=== PATIENT | male | born 1945 | race Caucasian/White ===

== ENCOUNTER 2018-04-03 12:01 | Outpatient (REF) | payer MEDICARE, SELFPAY ==
[2018-04-03 23:14] LABS: Potassium 4.4 mmol/L (3.5-5.1)
== END 2018-04-03 12:21 ==
LOC: NCHCN 12:01
PROVIDERS: PCP Internal Medicine; Visit Provider Internal Medicine
DX: E87.5 Hyperkalemia (principal)
CPT/HCPCS: 84132

== ENCOUNTER 2018-12-25 10:32 | Outpatient (REF) | payer MEDICARE, SELFPAY ==
[2018-12-25 21:18] LABS: Anion Gap 9.7 mmol/L (3-11); BUN 24 mg/dL (7-18); CO2 25.3 mmol/L (21.0-32.0); CREATININE 1.22 mg/dL (0.70-1.30); Calculated LDL 85; Chloride 108 mmol/L (98-107); Cholesterol 150 mg/dL (50-200); Estimated GFR 58.07 (mL/min/1.73m2); Glucose 102 mg/dL (70-100); HDL Cholesterol 39 mg/dL (40-60); Potassium 4.6 mmol/L (3.5-5.1); Sodium 143 mmol/L (136-145); Triglyceride 133 mg/dL (30-150)
[2018-12-25 21:23] LABS: Calcium 8.8 mg/dL (8.5-10.1)
== END 2018-12-25 10:52 ==
LOC: NCHCN 10:32
PROVIDERS: PCP Internal Medicine; Visit Provider Internal Medicine
DX: E78.5 Hyperlipidemia, unspecified (principal); I25.10 Atherosclerotic heart disease of native coronary artery without angina pectoris
CPT/HCPCS: 80048; 80061; 83721

== ENCOUNTER 2019-08-29 12:57 | Outpatient (REF) | payer MEDICARE, SELFPAY ==
[2019-08-29 21:44] LABS: Anion Gap 8.5 mmol/L (3-11); BUN 27 mg/dL (7-18); CO2 28.5 mmol/L (21.0-32.0); Calcium 9.3 mg/dL (8.5-10.1); Chloride 107 mmol/L (98-107); Estimated GFR 53.96 (mL/min/1.73m2); Glucose 80 mg/dL (74-106); Potassium 5.3 mmol/L (3.5-5.1); Sodium 144 mmol/L (136-145)
== END 2019-08-29 13:17 ==
LOC: NCHCN 12:57
PROVIDERS: PCP Nurse Practitioner Community Health; Visit Provider Nurse Practitioner Community Health
DX: I10 Essential (primary) hypertension (principal)
CPT/HCPCS: 80048

== ENCOUNTER 2019-09-12 10:13 | Outpatient (REF) | payer MEDICARE, SELFPAY ==
[2019-09-12 22:49] LABS: Potassium 4.9 mmol/L (3.5-5.1)
== END 2019-09-12 10:33 ==
LOC: NCHCN 10:13
PROVIDERS: PCP Nurse Practitioner Community Health; Visit Provider Nurse Practitioner Community Health
DX: E87.5 Hyperkalemia (principal)
CPT/HCPCS: 84132

== ENCOUNTER 2021-02-06 17:11 | Outpatient (REF) | payer MEDICARE, SELFPAY ==
[2021-02-06 20:38] LABS: HCT 37.3 % (40.0-50.0); HGB 12.2 g/dL (13.5-17.5); MCHC 32.7 % (32.0-36.0); MCV 91.6 fL (80-95); MPV 10.5 fL (8.0-11.0); Platelet Count 245 10^3/uL (130-400); RBC 4.07 10^6/uL (4.36-5.78); RDW-SD 46.9 fL
[2021-02-06 20:54] LABS: ESR 12 mm/hr (0-20)
[2021-02-06 20:55] LABS: C-Reactive Protein 0.07 mg/dL (0.0-0.3)
== END 2021-02-06 17:12 | disposition home or self-care (01) ==
LOC: NCHCN 17:11
PROVIDERS: PCP Nurse Practitioner Community Health; Visit Provider Nurse Practitioner Family
DX: H53.9 Unspecified visual disturbance (principal)
CPT/HCPCS: 85027; 85652; 86140

== ENCOUNTER 2021-07-02 08:49 | Outpatient (REF) | payer MEDICARE, SELFPAY ==
[2021-07-02 14:51] LABS: ALT 44 U/L (16-63); AST 35 U/L (15-37); Albumin 4.1 g/dL (3.4-5.0); Alkaline Phosphatase 82 U/L (46-116); Anion Gap 11.1 mmol/L (3-11); BUN 36 mg/dL (7-18); Bilirubin, Total 0.3 mg/dL (0.2-1.0); CO2 24.9 mmol/L (21.0-32.0); CREATININE 1.5 mg/dL (0.70-1.30); Calcium 9.2 mg/dL (8.5-10.1); Calculated LDL 96 mg/dL (<100); Chloride 104 mmol/L (98-107); Cholesterol 161 mg/dL (<200); Glucose 106 mg/dL (74-106); HDL Cholesterol 46 mg/dL (40-60); Potassium 4.6 mmol/L (3.5-5.1); Sodium 140 mmol/L (136-145); Total Protein 7.2 g/dL (6.4-8.2); Triglyceride 95 mg/dL (<150)
== END 2021-07-02 08:50 | disposition home or self-care (01) ==
LOC: NCHCN 08:49
PROVIDERS: PCP Nurse Practitioner Community Health; Visit Provider Internal Medicine
DX: I10 Essential (primary) hypertension (principal); E87.5 Hyperkalemia; E78.5 Hyperlipidemia, unspecified
CPT/HCPCS: 80053; 80061

== ENCOUNTER 2022-03-24 22:20 | Outpatient (REF) | payer MEDICARE, SELFPAY ==
[2022-03-24 22:22] LABS: HCT 36.7 % (40.0-50.0); HGB 12.8 g/dL (13.5-17.5); MCH 30.8 pg (27.0-33.0); MCHC 34.9 % (32.0-36.0); MCV 88 fL (80-95); MPV 10.4 fL (8.0-11.0); Platelet Count 254 10^3/uL (130-400); RBC 4.15 10^6/uL (4.36-5.78); RDW 13.2 % (11.8-14.1); RDW-SD 43.2 fL; WBC 8.96 10^3/uL (4.4-10.8)
[2022-03-24 22:32] LABS: ALT 50 U/L (16-63); AST 38 U/L (15-37); Albumin 3.9 g/dL (3.4-5.0); Alkaline Phosphatase 78 U/L (46-116); Anion Gap 8.6 mmol/L (3-11); BUN 25 mg/dL (7-18); Bilirubin, Total 0.2 mg/dL (0.2-1.0); CO2 25.4 mmol/L (21.0-32.0); CREATININE 1.5 mg/dL (0.70-1.30); Calcium 9.1 mg/dL (8.5-10.1); Chloride 105 mmol/L (98-107); Estimated GFR 47.65 (mL/min/1.73m2); Glucose 81 mg/dL (74-106); Potassium 4.6 mmol/L (3.5-5.1); Sodium 139 mmol/L (136-145); Total Protein 7.6 g/dL (6.4-8.2)
[2022-03-25 00:02] LABS: Calculated LDL 87 mg/dL (<100); Cholesterol 177 mg/dL (<200); HDL Cholesterol 41 mg/dL (40-60); Triglyceride 247 mg/dL (<150); Vitamin B12 261 pg/mL (193-986)
== END 2022-03-24 22:21 | disposition home or self-care (01) ==
LOC: NCHCN 22:20
PROVIDERS: PCP Internal Medicine; Visit Provider Internal Medicine
DX: I10 Essential (primary) hypertension (principal); R06.09 Other forms of dyspnea
CPT/HCPCS: 80053; 80061; 85027; 82607

== ENCOUNTER 2022-11-29 09:51 | Outpatient (REF) | payer MEDICARE, SELFPAY ==
[2022-11-29 16:18] LABS: HCT 37.9 % (40.0-50.0); HGB 12.7 g/dL (13.5-17.5); MCH 30.8 pg (27.0-33.0); MCHC 33.5 % (32.0-36.0); MCV 92 fL (80-95); MPV 10.7 fL (8.0-11.0); Platelet Count 248 10^3/uL (130-400); RBC 4.13 10^6/uL (4.36-5.78); RDW 13.9 % (11.8-14.1); RDW-SD 47.2 fL; Reticulocyte 1.2 % (0.5-2.4)
[2022-11-29 16:20] LABS: ALT 36 U/L (16-63); AST 31 U/L (15-37); Albumin 4.1 g/dL (3.4-5.0); Alkaline Phosphatase 83 U/L (46-116); Anion Gap 9.2 mmol/L (3-11); BUN 29 mg/dL (7-18); Bilirubin, Total 0.4 mg/dL (0.2-1.0); CO2 23.8 mmol/L (21.0-32.0); CREATININE 1.4 mg/dL (0.70-1.30); Calcium 9.1 mg/dL (8.5-10.1); Calculated LDL 83 mg/dL (<100); Chloride 107 mmol/L (98-107); Cholesterol 147 mg/dL (<200); Estimated GFR 51.45 (mL/min/1.73m2); Ferritin 241 ng/mL (26-388); Glucose 104 mg/dL (74-106); HDL Cholesterol 43 mg/dL (40-60); Potassium 4.8 mmol/L (3.5-5.1); Sodium 140 mmol/L (136-145); TSH 2.37 uIU/mL (0.36-3.74); Total Protein 7.3 g/dL (6.4-8.2); Triglyceride 106 mg/dL (<150); Vitamin B12 518 pg/mL (193-986)
[2022-11-29 16:23] LABS: Folate > 20.0 ng/mL (8.6-20.0)
[2022-11-29 16:44] LABS: Iron 67 ug/dL (65-175); Total Iron Binding Capacity 308 ug/dL (250-450); Transferrin Sat 22 % (20-55)
== END 2022-11-29 09:52 | disposition home or self-care (01) ==
LOC: NCHCN 09:51
PROVIDERS: PCP Internal Medicine; Visit Provider Nurse Practitioner Family
DX: D64.9 Anemia, unspecified (principal); I10 Essential (primary) hypertension; E78.5 Hyperlipidemia, unspecified; Z86.39 Personal history of other endocrine, nutritional and metabolic disease
CPT/HCPCS: 80053; 80061; 85027; 82607; 82728; 82746; 83540; 83550; 84443; 85045

== ENCOUNTER 2023-12-09 09:12 | Outpatient (REF) | payer MEDICARE, SELFPAY ==
[2023-12-09 14:36] LABS: HCT 38.6 % (40.0-50.0); HGB 12.8 g/dL (13.5-17.5); MCH 30.4 pg (27.0-33.0); MCHC 33.2 % (32.0-36.0); MCV 92 fL (80-95); MPV 10.3 fL (8.0-11.0); Platelet Count 229 10^3/uL (130-400); RBC 4.21 10^6/uL (4.36-5.78); RDW 13.5 % (11.8-14.1); RDW-SD 45.2 fL; WBC 7.22 10^3/uL (4.4-10.8)
[2023-12-09 14:45] LABS: ALT 30 U/L (16-63); AST 29 U/L (15-37); Albumin 3.9 g/dL (3.4-5.0); Alkaline Phosphatase 75 U/L (46-116); BUN 27 mg/dL (7-18); Bilirubin, Total 0.3 mg/dL (0.2-1.0); CREATININE 1.4 mg/dL (0.70-1.30); Calcium 9.6 mg/dL (8.5-10.1); Calculated LDL 70 mg/dL (<100); Chloride 107 mmol/L (98-107); Cholesterol 143 mg/dL (<200); Estimated GFR 51.13 (mL/min/1.73m2); Glucose 109 mg/dL (74-106); HDL Cholesterol 44 mg/dL (40-60); Sodium 142 mmol/L (136-145); Total Protein 7.3 g/dL (6.4-8.2); Triglyceride 147 mg/dL (<150)
[2023-12-09 15:09] LABS: Hemoglobin A1C 6.1 % (<5.7)
== END 2023-12-09 09:13 | disposition home or self-care (01) ==
LOC: NCHCN 09:12
PROVIDERS: PCP Internal Medicine; Visit Provider Internal Medicine
DX: I10 Essential (primary) hypertension (principal); R73.03 Prediabetes; D64.9 Anemia, unspecified
CPT/HCPCS: 80053; 80061; 85027; 83036

== ENCOUNTER 2024-06-12 09:18 | Outpatient (REF) | payer MEDICARE, SELFPAY ==
[2024-06-12 14:36] LABS: HCT 34.7 % (40.0-50.0); HGB 11.7 g/dL (13.5-17.5); MCH 30.9 pg (27.0-33.0); MCHC 33.7 % (32.0-36.0); MCV 92 fL (80-95); MPV 10.6 fL (8.0-11.0); Platelet Count 261 10^3/uL (130-400); RBC 3.79 10^6/uL (4.36-5.78); RDW 13.9 % (11.8-14.1); RDW-SD 46.7 fL; WBC 6.77 10^3/uL (4.4-10.8)
[2024-06-12 14:41] LABS: Anion Gap 9.5 mmol/L (3-11); BUN 24 mg/dL (7-18); CO2 25.5 mmol/L (21.0-32.0); CREATININE 1.6 mg/dL (0.70-1.30); Calcium 8.9 mg/dL (8.5-10.1); Chloride 109 mmol/L (98-107); Estimated GFR 43.56 (mL/min/1.73m2); Glucose 111 mg/dL (74-106); Potassium 4.8 mmol/L (3.5-5.1); Sodium 144 mmol/L (136-145); Uric Acid 4.8 mg/dL (3.5-7.2)
[2024-06-12 15:08] LABS: Hemoglobin A1C 5.8 % (<5.7)
== END 2024-06-12 09:19 | disposition home or self-care (01) ==
LOC: NCHCN 09:18
PROVIDERS: PCP Internal Medicine; Visit Provider Internal Medicine
DX: R73.03 Prediabetes (principal); M10.9 Gout, unspecified
CPT/HCPCS: 80048; 85027; 83036; 84550

== ENCOUNTER 2024-12-17 12:12 | Outpatient (REF) | payer MEDICARE, SELFPAY ==
[2024-12-17 16:42] LABS: Anion Gap 6.9 mmol/L (3-11); BUN 38 mg/dL (7-18); CO2 26.1 mmol/L (21.0-32.0); CREATININE 1.9 mg/dL (0.70-1.30); Calcium 9.2 mg/dL (8.5-10.1); Calculated LDL 48 mg/dL (<100); Chloride 108 mmol/L (98-107); Cholesterol 116 mg/dL (<200); Estimated GFR 35.22 (mL/min/1.73m2); Glucose 102 mg/dL (74-106); HDL Cholesterol 37 mg/dL (>or=40); Potassium 4.9 mmol/L (3.5-5.1); Sodium 141 mmol/L (136-145); Triglyceride 159 mg/dL (<150)
[2024-12-17 16:54] LABS: COMMENT (LAB VIEW ONLY) 102.48 mg/dL; Microalb ug/mg Crea 15.3 ug/mg Cr
[2024-12-17 19:40] LABS: Hemoglobin A1C 5.8 % (<5.7)
[2024-12-17 23:19] LABS: HCT 36.2 % (40.0-50.0); HGB 12.1 g/dL (13.5-17.5); MCH 30.6 pg (27.0-33.0); MCHC 33.4 % (32.0-36.0); MCV 91 fL (80-95); MPV 11.1 fL (8.0-11.0); Platelet Count 223 10^3/uL (130-400); RBC 3.96 10^6/uL (4.36-5.78); RDW 14.2 % (11.8-14.1); RDW-SD 47.7 fL; WBC 9.24 10^3/uL (4.4-10.8)
== END 2024-12-17 12:13 | disposition home or self-care (01) ==
LOC: NCHCN 12:12
PROVIDERS: PCP Internal Medicine; Visit Provider Internal Medicine
DX: N18.31 Chronic kidney disease, stage 3a (principal); R73.03 Prediabetes
CPT/HCPCS: 80048; 80061; 85027; 82043; 82570; 83036

== ENCOUNTER 2024-12-20 15:15 | Outpatient (REF) | payer MEDICARE, SELFPAY ==
[2024-12-20 21:02] LABS: BUN 49 mg/dL (7-18); Calcium 8.9 mg/dL (8.5-10.1); Chloride 108 mmol/L (98-107); Estimated GFR 33.12 (mL/min/1.73m2); Glucose 92 mg/dL (74-106); Sodium 142 mmol/L (136-145); Vitamin B12 664 pg/mL (193-986)
== END 2024-12-20 15:16 | disposition home or self-care (01) ==
LOC: NCHCN 15:15
PROVIDERS: PCP Internal Medicine; Visit Provider Internal Medicine
DX: N18.31 Chronic kidney disease, stage 3a (principal); M10.9 Gout, unspecified; D64.9 Anemia, unspecified
CPT/HCPCS: 80048; 82607; 84550

== ENCOUNTER 2025-01-14 18:45 | Outpatient (REF) | payer MEDICARE, SELFPAY ==
[2025-01-14 15:22] LABS: Anion Gap 8.8 mmol/L (3-11); BUN 28 mg/dL (7-18); CO2 24.2 mmol/L (21.0-32.0); Calcium 9.5 mg/dL (8.5-10.1); Chloride 107 mmol/L (98-107); Estimated GFR 55.53 (mL/min/1.73m2); Glucose 101 mg/dL (74-106); Potassium 4.7 mmol/L (3.5-5.1); Sodium 140 mmol/L (136-145)
== END 2025-01-14 18:46 | disposition home or self-care (01) ==
LOC: NCHCN 18:45
PROVIDERS: PCP Internal Medicine; Visit Provider Internal Medicine
DX: N18.31 Chronic kidney disease, stage 3a (principal)
CPT/HCPCS: 80048

== ENCOUNTER 2025-04-15 15:47 | Outpatient (REF) | payer MEDICARE, SELFPAY ==
[2025-04-15 18:54] LABS: Abs Immature Grans 0.04 10^3/uL (0.0-0.06); HCT 37.5 % (40.0-50.0); HGB 12.1 g/dL (13.5-17.5); Immature Grans % 0.5 %; MCH 30.0 pg (27.0-33.0); MCHC 32.3 % (32.0-36.0); MCV 93 fL (80-95); MPV 11.1 fL (8.0-11.0); Platelet Count 240 10^3/uL (130-400); RBC 4.03 10^6/uL (4.36-5.78); RDW 14.5 % (11.8-14.1); RDW-SD 50.0 fL; WBC 8.42 10^3/uL (4.4-10.8)
[2025-04-15 19:14] LABS: ALT 49 U/L (16-63); AST 34 U/L (15-37); Albumin 4.3 g/dL (3.4-5.0); Alkaline Phosphatase 87 U/L (46-116); Anion Gap 10.4 mmol/L (3-11); BUN 37 mg/dL (7-18); Bilirubin, Total 0.4 mg/dL (0.2-1.0); CO2 25.6 mmol/L (21.0-32.0); Calcium 9.4 mg/dL (8.5-10.1); Chloride 106 mmol/L (98-107); Estimated GFR 43.29 (mL/min/1.73m2); Glucose 96 mg/dL (74-106); Potassium 4.8 mmol/L (3.5-5.1); Sodium 142 mmol/L (136-145); TSH (W/Ref FT4) 2.77 uIU/mL (0.36-3.74); Total Protein 7.9 g/dL (6.4-8.2)
[2025-04-16 18:06] LABS: PSA, Screening 0.8 ng/mL (<=6.5)
== END 2025-04-15 15:48 | disposition home or self-care (01) ==
LOC: NCHCN 15:47
PROVIDERS: PCP Internal Medicine; Visit Provider Internal Medicine
DX: R10.31 Right lower quadrant pain (principal)
CPT/HCPCS: 80053; 84153; 84443; 85025